=== PATIENT | female | born 1980 | race Caucasian/White ===

== ENCOUNTER 2019-03-04 21:15 | Emergency (ER) | payer OTHER ==
[2019-03-04] MEDS ORDERED: diphenhydrAMINE 50 MG/ML VIAL ONE (22:05)
[2019-03-04] MEDS ORDERED: predniSONE 20 MG TAB ONE (22:05)
[2019-03-04] MEDS ORDERED: Dexamethasone 10 MG/ML VIAL ONE (22:06)
== END 2019-03-04 22:37 | disposition home or self-care (01) ==
LOC: ERS 21:15
DX: L50.9 Urticaria, unspecified (principal); I10 Essential (primary) hypertension; Z79.899 Other long term (current) drug therapy
CPT/HCPCS: 96372; 99282; J1100; J1200; J7512

== ENCOUNTER 2023-05-31 08:18 | Outpatient (CLI) | payer BC | END 2023-05-31 08:19 | disposition home or self-care (01) | LOC: BICMAMMO 08:18 | PROVIDERS: ATTEND Physician Assistant | DX: Z12.31 Encounter for screening mammogram for malignant neoplasm of breast (principal) | CPT/HCPCS: 77063; 77067 ==

== ENCOUNTER 2024-06-12 11:05 | Outpatient (CLI) | payer BC | END 2024-06-12 11:06 | disposition home or self-care (01) | LOC: BICMAMMO 11:05 | PROVIDERS: ATTEND Family Medicine | DX: Z12.31 Encounter for screening mammogram for malignant neoplasm of breast (principal); Z80.3 Family history of malignant neoplasm of breast; N64.89 Other specified disorders of breast | CPT/HCPCS: 77063; 77067 ==

== ENCOUNTER 2024-06-25 07:55 | Outpatient (CLI) | payer BC | END 2024-06-25 07:56 | disposition home or self-care (01) | LOC: BICMAMMO 07:55 | PROVIDERS: ATTEND Family Medicine | DX: N64.89 Other specified disorders of breast (principal) | CPT/HCPCS: G0279 ==